=== PATIENT | male | born 1980 | race African-American/Black ===

== ENCOUNTER 2018-05-07 09:26 | Emergency (ER) | payer OTHER ==
[2018-05-07] MEDS ORDERED: predniSONE 20 MG TAB ONE (09:55)
--- NOTE | 2018-05-07 10:08 | RAD REPORT ---
EXAM DESCRIPTION: CT - Head Brain Wo Cont - 05/07/2018 9:48 am CLINICAL HISTORY: Numbness and headache COMPARISON: None. TECHNIQUE: Computed axial tomography of the head was obtained. IV contrast was not requested. All CT scans are performed using dose optimization technique as appropriate and may include automated exposure control or mA/KV adjustment according to patient size. FINDINGS: An intracranial bleed is not seen . The ventricles are normal in caliber. No extra-axial fluid collection is noted. Fluid within the sinuses/ mastoids is not seen. IMPRESSION: No acute intracranial abnormality is seen. If patient's symptoms persist MRI of the bra in would be recommended.
--- NOTE | 2018-05-07 10:37 | ER ---
Nurse's Notes [facility] Name: David Morales Jr Age: 38 yrs Sex: Male : 1980 Arrival Date: 05/07/2018 Time: 09:27 Bed 5 Private MD: Diagnosis: Jonas's palsy Presentation: 05/07 09:33 Presenting complaint: Patient states: 2-3 daysa go, i started having ear pain on my R hj ear and yesterday, i started having headache; and today when i woke up i had jaw pain and the right side of my face is numb and i could hardly close my R eye; my lips rose leaned towards the L side;. Transition of care: patient was not received from another setting of care. Onset of symptoms was May 07, 2018. Risk Assessment: Do you want to hurt yourself or someone else? Patient reports no desire to harm self or others. Initial Sepsis Screen: Does the patient meet any 2 criteria? No. Patient's initial sepsis screen is negative. Does the patient have a suspected source of infection? No. Patient's initial sepsis screen is negative. Care prior to arrival: None. 09:33 Method Of Arrival: Ambulatory 09:33 Acuity: MABEL 4 hj Triage Assessment: 09:36 General: Appears in no apparent distress. uncomfortable, Behavior is calm, cooperative, hj appropriate for age. Pain: Complains of pain in head. Historical: - Allergies: 09:36 No Known Allergies; hj - Home Meds: 09:36 None [Active]; hj - PMHx: 09:36 None; hj - PSHx: 09:36 ankle; hj - Immunization history:: Adult Immunizations up to date. - Social history:: Smoking status: Patient/guardian denies using tobacco, Patient/guardian denies using alcohol. - Ebola Screening: : Patient negative for fever greater than or equal to 101.5 degrees Fahrenheit, and additional compatible Ebola Virus Disease symptoms Patient denies exposure to infectious person Patient denies travel to an Ebola-affected area in the 21 days before illness onset. Screenin:36 Abuse screen: Denies threats or abuse. Denies injuries from another. Nutritional hj screening: No deficits noted. Tuberculosis screening: No symptoms or risk factors identified. Fall Risk None identified. Assessment: 09:37 General: Appears in no apparent distress. uncomfortable, Behavior is calm, cooperative, hj appropriate for age. Pain: Complains of pain in head. Neuro: Level of Consciousness is awake, alert, obeys commands, Oriented to person, place, time, situation, Appropriate for age Reports numbness in R side of face weakness. Cardiovascular: Capillary refill < 3 seconds Patient's skin is warm and dry. Respiratory: Airway is patent Respiratory effort is even, unlabored, Respiratory pattern is regular, symmetrical. GI: No signs and/or symptoms were reported involving the gastrointestinal system. : No signs and/or symptoms were reported regarding the genitourinary system. EENT: No signs and/or symptoms were reported regarding the EENT system. Derm: No signs and/or symptoms reported regarding the dermatologic system. Musculoskeletal: Reports weakness in right eye, right cheek and right jaw numbness in right eye, right cheek and right jaw. 09:46 Reassessment: wheeled to CT;. hj 10:11 Reassessment: Patient appears in no apparent distress at this time. No changes from aj1 previously documented assessment. Patient and/or family updated on plan of care and expected duration. Pain level reassessed. Patient is alert, oriented x 3, equal unlabored respirations, skin warm/dry/pink. Vital Signs: 09:37 BP 150 / 98; Pulse 66; Resp 18; Temp 98.2(O); Pulse Ox 100% on R/A; Weight 74.84 kg; hj Height 5 ft. 11 in. (180.34 cm); Pain 2/10; 09:37 Body Mass Index 23.01 (74.84 kg, 180.34 cm) ED Course: 09:27 Patient arrived in ED. rg4 09:32 Colten Banuelos PA is PHCP. jr8 09:32 Carlos Alberto Cain MD is Attending Physician. jr8 09:33 Saúl Andre RN is Primary Nurse. hj 09:35 Triage completed. hj 09:36 Arm band placed on right wrist. hj 09:36 Patient has correct armband on for positive identification. Bed in low position. Call light in reach. Side rails up X 1. 09:48 CT Head Brain wo Cont In Process Unspecified. EDMS 09:48 CT completed. Patient tolerated procedure well. Patient moved to CT via stretcher. jg6 Patient moved back from CT. 10:04 Report given to TRISTEN Chappell. hj 10:10 Vicki Alejandre, RN is Primary Nurse. aj1 10:36 Sen Arizmendi MD is Referral Physician. jr8 10:44 No provider procedures requiring assistance completed. Patient did not have IV access iw during this emergency room visit. Administered Medications: 09:51 Drug: predniSONE 60 mg Route: PO; aj1 10:45 Follow up: Response: No adverse reaction iw Outcome: 10:37 Discharge ordered by . jr8 10:44 Discharged to home ambulatory, with family. iw 10:44 Condition: good 10:44 Discharge instructions given to patient, family, Instructed on discharge instructions, follow up and referral plans. medication usage, Demonstrated understanding of instructions, follow-up care, medications, Prescriptions given X 1. 10:45 Patient left the ED. iw Signatures: Dispatcher [employer] EDMS Vicki Alejandre, TRISTEN RAMON aj1 Tasneem Pierce RN RN iw Colten Banuelos PA PA jr8 Saúl Andre RN RN Rhianan Mas4 Cyndi Mas jg6
--- NOTE | 2018-05-07 10:38 | EDPHYS ---
Physician Documentation [facility] Name: David Morales Jr Age: 38 yrs Sex: Male : 1980 Arrival Date: 05/07/2018 Time: 09:27 Bed 5 Private MD: ED Physician Carlos Alberto Cain HPI: 05/07 10:19 This 38 yrs old Black Male presents to ER via Ambulatory with complaints of Numbness Of jr8 Face. 10:19 Onset: The symptoms/episode began/occurred acutely, today. The patient has not jr8 experienced similar symptoms in the past. The patient has not recently seen a physician. Patient started with ear pain about two days ago. Had headache yesterday and then work up today with numbness to right face and could not close right eye all the way and felt right side of lips were different. Denies recent illness or trauma. Historical: - Allergies: 09:36 No Known Allergies; hj - Home Meds: 09:36 None [Active]; hj - PMHx: 09:36 None; hj - PSHx: 09:36 ankle; hj - Immunization history:: Adult Immunizations up to date. - Social history:: Smoking status: Patient/guardian denies using tobacco, Patient/guardian denies using alcohol. - Ebola Screening: : Patient negative for fever greater than or equal to 101.5 degrees Fahrenheit, and additional compatible Ebola Virus Disease symptoms Patient denies exposure to infectious person Patient denies travel to an Ebola-affected area in the 21 days before illness onset. ROS: 10:19 Eyes: Negative for injury, pain, redness, and discharge, ENT: Negative for injury, jr8 pain, and discharge, Neck: Negative for injury, pain, and swelling, Cardiovascular: Negative for chest pain, palpitations, and edema, Respiratory: Negative for shortness of breath, cough, wheezing, and pleuritic chest pain, Abdomen/GI: Negative for abdominal pain, nausea, vomiting, diarrhea, and constipation, Back: Negative for injury and pain, MS/Extremity: Negative for injury and deformity, Skin: Negative for injury, rash, and discoloration. 10:19 Neuro: Positive for numbness, weakness, of the face. Exam: 10:19 Head/Face: Normocephalic, atraumatic. Eyes: Pupils equal round and reactive to light, jr8 extra-ocular motions intact. Lids and lashes normal. Conjunctiva and sclera are non-icteric and not injected. Cornea within normal limits. Periorbital areas with no swelling, redness, or edema. ENT: Nares patent. No nasal discharge, no septal abnormalities noted. Tympanic membranes are normal and external auditory canals are clear. Oropharynx with no redness, swelling, or masses, exudates, or evidence of obstruction, uvula midline. Mucous membranes moist. Neck: Trachea midline, no thyromegaly or masses palpated, and no cervical lymphadenopathy. Supple, full range of motion without nuchal rigidity, or vertebral point tenderness. No Meningismus. Cardiovascular: Regular rate and rhythm with a normal S1 and S2. No gallops, murmurs, or rubs. Normal PMI, no JVD. No pulse deficits. Respiratory: Lungs have equal breath sounds bilaterally, clear to auscultation and percussion. No rales, rhonchi or wheezes noted. No increased work of breathing, no retractions or nasal flaring. Abdomen/GI: Soft, non-tender, with normal bowel sounds. No distension or tympany. No guarding or rebound. No evidence of tenderness throughout. Back: No spinal tenderness. No costovertebral tenderness. Full range of motion. Skin: Warm, dry with normal turgor. Normal color with no rashes, no lesions, and no evidence of cellulitis. MS/ Extremity: Pulses equal, no cyanosis. Neurovascular intact. Full, normal range of motion. 10:19 Neuro: Orientation: to person, place, time \T\ situation. Mentation: is normal, Memory: is normal, immediate memory is intact, recent memory is intact, remote memory is intact, Cranial nerves: CN I not tested, CN II- XII are normal as tested, visual chanel are intact. extraocular movements are intact, facial droop noted on right, with forehead involved. decreased ocular muscle tone in the right eye, Cerebellar function: is grossly normal, Motor: moves all fours, strength is 5/5 in all extremities, Sensation: no obvious gross deficits, Gait: is steady, seizure activity, is not displayed by the patient, Abnormal movements: there are no abnormal movements. Vital Signs: 09:37 BP 150 / 98; Pulse 66; Resp 18; Temp 98.2(O); Pulse Ox 100% on R/A; Weight 74.84 kg; hj Height 5 ft. 11 in. (180.34 cm); Pain 06/13; 09:37 Body Mass Index 23.01 (74.84 kg, 180.34 cm) hj MDM: 09:32 Patient medically screened. jr8 10:36 Data reviewed: vital signs, nurses notes, radiologic studies, CT scan. Data jr8 interpreted: Pulse oximetry: on room air is 100 %. Interpretation: normal. Counseling: I had a detailed discussion with the patient and/or guardian regarding: the historical points, exam findings, and any diagnostic results supporting the discharge/admit diagnosis, radiology results, the need for outpatient follow up, a neurologist, to return to the emergency department if symptoms worsen or persist or if there are any questions or concerns that arise at home. 05/07 09:39 Order name: CT Head Brain wo Cont; Complete Time: 10:13 jr8 Administered Medications: 09:51 Drug: predniSONE 60 mg Route: PO; aj1 10:45 Follow up: Response: No adverse reaction iw Disposition: 05/07/18 10:37 Discharged to Home. Impression: Jonas's palsy. - Condition is Stable. - Discharge Instructions: Jonas Palsy, Adult. - Prescriptions for Prednisone 20 mg Oral Tablet - take 3 tablets by ORAL route once daily for 6 days; 18 tablet. - Work release form, Medication Reconciliation Form, Thank You Letter, Antibiotic Education, Prescription Opioid Use form. - Follow up: Sen Arizmendi MD; When: 5 - 6 days; Reason: Recheck today's complaints, Continuance of care, Re-evaluation by your physician. - Problem is new. - Symptoms have improved. Addendum: 05/20/2018 07:26 Co-signature as Attending Physician, Carlos Alberto Cain MD I agree with the assessment and k dr plan of care. Signatures: Dispatcher [employer] EDMS Vicki Alejandre RN RN aj1 Carlos Alberto Cain MD MD kdr Tasneem Pierce RN RN iw Colten Banuelos PA PA jr8 Saúl Andre RN RN hj Corrections: (The following items were deleted from the chart) 05/07 10:45 10:37 05/07/2018 10:37 Discharged to Home. Impression: Jonas's palsy. Condition is iw Stable. Forms are Medication Reconciliation Form, Thank You Letter, Antibiotic Education, Prescription Opioid Use. Follow up: Sen Arizmendi; When: 5 - 6 days; Reason: Recheck today's complaints, Continuance of care, Re-evaluation by your physician. Problem is new. Symptoms have improved. jr8
[2018-05-07 10:50] VITALS: BP 150/98; TEMP 98.2; O2SAT 100
== END 2018-05-07 10:45 | disposition home or self-care (01) ==
LOC: ER 09:26
DX: G51.0 Bell's palsy (principal)
CPT/HCPCS: 70450; 99284; J7512

== ENCOUNTER 2022-07-17 15:30 | Emergency (ER) | payer SELFPAY ==
--- OUTSIDE RECORDS SUMMARY | 2022-07-17 15:36 | XMS REPORT | Continuity of Care Document ---
:1980 Author Organization [facility] t Address [address] [place] [address] [place] [id number] Care Team Providers Name Role Phone BERT STILL Primary Care Physician Unavailable BERT STILL Attending Clinician Unavailable Bert Still MD Attending Clinician Problems Condition Condition Condition Status Onset Resolution Last Treating Co mments Source Name Details Category Date Date Treatment Clinician Date Primary Primary Disease Active 2021-05 Univers hypertensi hypertensi 2-08 it y of on on 00:00: [address] Allergies, Adverse Reactions, Alerts Allergy Allergy Status Severity Reaction(s) Onset Inactive Treating Comm ents Source Name Type Date Date Clinician NO KNOWN Drug Active Univers ALLERGIE Class ity of S [facility] Social History Social Habit Start Date Stop Date Quantity Comments Source History of tobacco Cigarette Smoker University of use [facility] Exposure to 2022-03-31 2022-04-10 Not sure [facility] SARS-CoV-2 (event) 00:00:00 15:21:00 [facility] Cigarette 2022-04-10 2022-04-10 University of pack-years 00:00:00 00:00:00 [facility] Tobacco use and 2022-04-10 2022-04-10 Former smokeless Uni versity of exposure 00:00:00 00:00:00 [facility] [place] Alcohol intake 2022-04-10 2022-04-10 Current drinker Unive rsity of 00:00:00 00:00:00 of alcohol [facility] [place] Alcohol Comment 2022-04-10 2022-04-10 socially Universit y of 00:00:00 00:00:00 [facility] Cigarettes smoked 2022-04-10 2022-04-10 Univers ity of current (pack per 00:00:00 00:00:00 ) - Reported Branch Sex Assigned [birth year] Universit y of 00:00:00 00:00:00 [facility] Smoking Status Start Date Stop Date Source Smokes tobacco daily 2022-04-10 00:00:00 Univers ity [facility] Medications Ordered Filled Start Stop Current Ordering Indication Dosage Frequency Signature Comments Components Source Medication Medication Date Date Medication? Clinician (SIG) Name Name ATENOLOL 25 Yes [id number] TAKE 1 Univers mg tablet 3-06 TABLET BY ity o f 00:00: MOUTH [place] 00 EVERY DAY Medical IN THE Branch MORNING atenoloL 25 2021-05 Yes [id number] 25mg Take 1 Univers mg tablet 2-08 tablet by ity o f 00:00: mouth in [place] 00 the Medical morning. Branch atenoloL 25 2021-05 Yes [id number] 25mg Take 1 Univers mg tablet 2-08 tablet by ity o f 00:00: mouth in [place] 00 the Medical morning. Branch atenoloL 25 2021-05- No [id number] 25mg Take 1 Univers mg tablet 2-08 03-06 tablet by ity of 00:00: 00:00 mouth in [place] 00 :00 the Medical morning. Branch Vital Signs Vital Name Observation Time Observation Value Comments Source Systolic blood 2022-04-10 21:27:00 145 mm[Hg] [facility] pressure [facility] Diastolic blood 2022-04-10 21:27:00 89 mm[Hg] [facility] Heart rate 2022-04-10 21:26:00 75 /min [facility] Body height 2022-04-10 21:26:00 177.8 cm [facility] Body weight 2022-04-10 21:26:00 78.79 kg [facility] BMI 2022-04-10 21:26:00 24.92 kg/m2 [facility] Oxygen saturation 2022-04-10 21:26:00 96 /min [facility] in Arterial blood Medical Br anch by Pulse oximetry Procedures This patient has no known procedures. Encounters Start End Encounter Admission Attending Care Care Encounter Source Date/Time Date/Time Type Type Clinicians Facility Department ID 2022-07-24 2022-07-24 Outpatient Asha STILL [facility] [id number] Univers 13:45:00 13:45:00 BERT shea [facility] 2022-07-06 2022-07-06 [facility] [id number] Univers 00:00:00 00:00:00 [place] [id number] it y of [place] [id number] Feliberto as JAVIER?BLEA [id number] [address] MEDICAL OFFICE BUILDING 2022-04-10 2022-04-10 Outpatient Asha STILL [facility] [id number] Univers 15:15:00 15:53:39 BERT melecio [facility] 2022-04-10 2022-04-10 [facility] [id number] Univers 15:15:00 15:53:39 Visit [facility] [id number] it y of [place] [id number] Feliberto as JAVIER?BLEA [id number] [address] MEDICAL OFFICE BUILDING Results This patient has no known results.
[2022-07-17 16:54] LABS: Absolute Lymphocytes (CBC) 1.6 K/uL (0.7-4.9); Lymphocytes % 28.9 % (15.3-44.8); MCV 81.9 fL (80-100); MPV 6.2 fL (7.6-11.3); RBC Red Blood Cell Count 4.89 M/uL (4.33-5.43)
[2022-07-17 17:07] LABS: Potassium 3.7 mEq/L (3.5-5.1)
[2022-07-17] MEDS ORDERED: NA CHLORIDE 0.9% 250 ML ONE (17:07)
--- NOTE | 2022-07-17 17:20 | RAD REPORT ---
EXAM DESCRIPTION: CT - Head Brain Wo Cont - 07/17/2022 4:54 pm CLINICAL HISTORY: Dizziness;Headache COMPARISON: 05/07/[address] TECHNIQUE: Noncontrast head CT images ad were obtained without IV contrast. Multiplanar reformats we re generated and reviewed. All CT scans are performed using dose optimization technique as appropriate and may include automated exposure control or mA/KV adjustment according to patient size. FINDINGS: No intracranial hemorrhage, mass, or edema. Midline structures are unremarkable. Normal ventricular caliber for age. Blake-white matter differentiation is preserved, without evidence of acute infarct. No abnormal extra- axial fluid collections. Mastoid air cells and visualized portions of the paranasal sinuses are clear. No acute bony findings. IMPRESSION: No evidence of an acute intracranial process.
--- NOTE | 2022-07-17 17:27 | RAD REPORT ---
EXAM DESCRIPTION: CT - Head angio - 07/17/2022 4:54 pm CLINICAL HISTORY: DIZZINESS COMPARISON: Head Brain Wo Cont dated 07/17/2022; Head Brain Wo Cont dated 05/07/2018 TECHNIQUE: Axial CT angiography images of the head was performed with multiplanar and maximum intens ity projection reconstructions. Images performed following intravenous administration of 95mL Isovue 370. All CT scans are performed using dose optimization technique as appropriate and may include automated exposure control or mA/KV adjustment according to patient size. FINDINGS: No evidence of large vessel occlusion. No evidence of aneurysm or dissection flap is detec barrett. No flow-limiting stenosis or vascular malformation identified. Antegrade flow is seen in the vertebral arteries. The vertebral arteries are codominant. The visualized dural venous sinuses are grossly patent. IMPRESSION: No evidence of large vessel occlusion or flow-limiting stenosis.
--- NOTE | 2022-07-17 17:30 | RAD REPORT ---
EXAM DESCRIPTION: CT - Neck Angio - 07/17/2022 4:54 pm CLINICAL HISTORY: FACIAL PAIN COMPARISON: Noncontrast head CT of the same day TECHNIQUE: Axial CT angiography images of the head was performed with multiplanar and maximum intens ity projection reconstructions. Images performed following intravenous administration of 95mL Isovue 370. All CT scans are performed using dose optimization technique as appropriate and may include automated exposure control or mA/KV adjustment according to patient size. CT quantification o f carotid stenosis, if any, is performed according to NASCET criteria. FINDINGS: A left aortic arch is identified with variant do vessel arch configuration of the great ve ssels. No significant flow abnormality is seen of the common carotid bilaterally. No significant stenosis is identified involving the cervical segments of both internal carotid arteri es. Normal flow is seen within both vertebral arteries, although the proximal right vertebral artery and its origin are obscured by artifact resulting from dense venous contrast. IMPRESSION: No significant flow abnormality of the neck vessels is identified.
--- NOTE | 2022-07-17 18:15 | EDPHYS ---
Physician Documentation [facility] Name: David Morales Jr Age: 42 yrs Sex: Male : 1980 Arrival Date: 07/17/2022 Time: 15:33 Bed 6 Private MD: ED Physician Carlos Alberto Cain HPI: 07/17 16:32 This 42 yrs old Black Male presents to ER via Ambulatory with complaints of Facial snw Pain, Neck Pain, <24hrs Old. 16:32 The patient or guardian reports pain, tenderness. 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 - Social history:: Smoking status: Patient reports the use of cigarette tobacco products, smokes one-half pack cigarettes per day, Reported history of juuling and/or vaping. ROS: 16:30 Eyes: Negative for injury, pain, redness, and discharge. snw 16:30 Neck: Negative for injury, pain, and swelling, Cardiovascular: Negative for chest pain, palpitations, and edema, Respiratory: Negative for shortness of breath, cough, wheezing, and pleuritic chest pain, Abdomen/GI: Negative for abdominal pain, nausea, vomiting, diarrhea, and constipation, Back: Negative for injury and pain, : Negative for injury, bleeding, discharge, and swelling. 16:30 Skin: Negative for injury, rash, and discoloration, Psych: Negative for depression, anxiety, suicide ideation, homicidal ideation, and hallucinations. 16:30 Constitutional: Positive for body aches, malaise. 16:30 ENT: Positive for ear pain. 16:30 MS/extremity: Positive for pain, tenderness, of the right side of forehead, right occipital area, right ear and right base of the skull. 16:30 Neuro: Positive for dizziness, headache, of the right side of forehead, right occipital area, right ear and right base of the skull. Exam: 16:29 Constitutional: This is a well developed, well nourished patient who is awake, alert, snw and in no acute distress. Head/Face: Normocephalic, atraumatic. Eyes: Pupils equal round and reactive to light, extra-ocular motions intact. Lids and lashes normal. Conjunctiva and sclera are non-icteric and not injected. Cornea within normal limits. Periorbital areas with no swelling, redness, or edema. 16:29 Chest/axilla: Normal chest wall appearance and motion. Nontender with no deformity. No lesions are appreciated. Cardiovascular: Regular rate and rhythm with a normal S1 and S2. No gallops, murmurs, or rubs. Normal PMI, no JVD. No pulse deficits. Respiratory: Lungs have equal breath sounds bilaterally, clear to auscultation and percussion. No rales, rhonchi or wheezes noted. No increased work of breathing, no retractions or nasal flaring. Abdomen/GI: Soft, non-tender, with normal bowel sounds. No distension or tympany. No guarding or rebound. No evidence of tenderness throughout. Back: No spinal tenderness. No costovertebral tenderness. Full range of motion. 16:29 Skin: Warm, dry with normal turgor. Normal color with no rashes, no lesions, and no evidence of cellulitis. MS/ Extremity: Pulses equal, no cyanosis. Neurovascular intact. Full, normal range of motion. Neuro: Awake and alert, GCS 15, oriented to person, place, time, and situation. Cranial nerves II-XII grossly intact. Motor strength 5/5 in all extremities. Sensory grossly intact. Cerebellar exam normal. Normal gait. Psych: Awake, alert, with orientation to person, place and time. Behavior, mood, and affect are within normal limits. 16:29 ENT: External ear(s): are unremarkable, Ear canal(s): are normal, TM's: are normal, Nose: is normal, Mouth: Oral mucosa: pink and intact, Posterior pharynx: erythema, that is moderate, Dental exam: normal. 16:29 Neck: External neck: tenderness, that is moderate, of the right mid cervical area and right trapezius. Vital Signs: 15:53 BP 139 / 107; Pulse 68; Resp 18; Temp 98.1; Pulse Ox 98% on R/A; Weight 77.11 kg; kr3 Height 5 ft. 10 in. ; Pain 7/10; 15:53 Body Mass Index 24.39 (77.11 kg, 177.8 cm) kr3 15:53 Pain Scale: Adult kr3 [place] Coma Score: 16:33 Eye Response: spontaneous(4). Motor Response: obeys commands(6). Verbal Response: snw oriented(5). Total: 15. MDM: 15:55 Patient medically screened. snw 16:33 Differential diagnosis: Jonas's palsy, TMJ, mass, Hypertensive urgency. Data reviewed: snw vital signs, nurses notes. 07/17 16:27 Order name: CBC with Diff; Complete Time: 17:03 snw 07/17 16:27 Order name: Strep; Complete Time: 17:03 snw 07/17 16:27 Order name: Chem 7; Complete Time: 17:13 snw 07/17 16:27 Order name: CT Head Brain wo Cont; Complete Time: 17:24 snw 07/17 16:27 Order name: CT Head Angio; Complete Time: 17:47 snw 07/17 16:27 Order name: CT Neck Angio; Complete Time: 17:47 snw 07/17 17:04 Order name: Throat Culture EDMS 07/17 18:08 Order name: Recheck Vital Signs snw Administered Medications: 17:01 Drug: NS 0.9% IV 250 ml Route: IV; Rate: 75 ml/hr; Site: right antecubital; ko1 Disposition Summary: 07/17/22 18:15 Discharge Ordered Location: Home snw Condition: Stable snw Diagnosis - Headache snw - Dizziness and giddiness - hx of Jonas's Palsy snw Followup: snw - With: Emergency Department - When: As needed - Reason: Worsening of condition Followup: snw - With: Private Physician - When: 2 - 3 days - Reason: Recheck today's complaints, Continuance of care, Re-evaluation by your physician Forms: - Medication Reconciliation Form snw - Thank You Letter snw - Antibiotic Education snw - Prescription Opioid Use snw Signatures: Dispatcher [employer] EDMS Jenna Whaley FNP-C [employer]-Csnw Portia Villagomez RN RN kr3 Cathleen Beltran RN RN ko1
--- NOTE | 2022-07-17 18:15 | ER ---
Nurse's Notes [facility] Name: David Morales Jr Age: 42 yrs Sex: Male : 1980 Arrival Date: 07/17/2022 Time: 15:33 Bed 6 Private MD: Diagnosis: Headache;Dizziness and giddiness-hx of Jonas's Palsy Presentation: 07/17 15:53 Chief complaint: Patient states: past couple of days I have had a headache on the right kr3 side of my head, pain in the right side of my neck and right shoulder pain. I have had jonas palsy in the past and this feels similar. The past few months inside my nose there is like a sore or something that bleeds and then blocks my passage way. Coronavirus screen: Vaccine status: Patient reports being unvaccinated. Ebola Screen: Patient denies travel to an Ebola-affected area in the 21 days before illness onset. Acute neurological deficit: none identified. Initial Sepsis Screen: Does the patient meet any 2 criteria? No. Patient's initial sepsis screen is negative. Does the patient have a suspected source of infection? No. Patient's initial sepsis screen is negative. Risk Assessment: Do you want to hurt yourself or someone else? Patient reports no desire to harm self or others. Onset of symptoms was July 11, 2022. 15:53 Method Of Arrival: Ambulatory kr3 15:53 Acuity: MABEL 3 kr3 Triage Assessment: 16:01 General: Appears in no apparent distress. uncomfortable, Behavior is calm, cooperative, kr3 appropriate for age. Neuro: Level of Consciousness is awake, alert, obeys commands, Oriented to person, place, time, situation. Cardiovascular: Patient's skin is warm and dry. Respiratory: Airway is patent Respiratory effort is even, unlabored, Respiratory pattern is regular, symmetrical. 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 - Social history:: Smoking status: Patient reports the use of cigarette tobacco products, smokes one-half pack cigarettes per day, Reported history of juuling and/or vaping. Vital Signs: 15:53 BP 139 / 107; Pulse 68; Resp 18; Temp 98.1; Pulse Ox 98% on R/A; Weight 77.11 kg; kr3 Height 5 ft. 10 in. ; Pain 7/10; 15:53 Body Mass Index 24.39 (77.11 kg, 177.8 cm) kr3 15:53 Pain Scale: Adult kr3 [place] Coma Score: 16:33 Eye Response: spontaneous(4). Motor Response: obeys commands(6). Verbal Response: snw oriented(5). Total: 15. ED Course: 15:33 Patient arrived in ED. rg4 15:49 Jenna Whaley FNP-C [facility]. snw 15:49 Carlos Alberto Cain MD is Attending Physician. snw 15:59 Triage completed. kr3 16:01 Arm band placed on right wrist. kr3 16:45 Inserted saline lock: 20 gauge in right antecubital area, using aseptic technique. ko1 Blood collected. 16:50 Cathleen Beltran, RN is Primary Nurse. ko1 16:50 CBC with Diff Sent. ko1 16:50 Chem 7 Sent. ko1 16:50 Strep Sent. ko1 16:55 CT Head Brain wo Cont In Process Unspecified. EDMS 16:56 CT Head Angio In Process Unspecified. EDMS 16:56 CT Neck Angio In Process Unspecified. EDMS Administered Medications: 17:01 Drug: NS 0.9% IV 250 ml Route: IV; Rate: 75 ml/hr; Site: right antecubital; ko1 Outcome: 18:15 Discharge ordered by . snw Signatures: Dispatcher [employer] EDMS Jenna Whaley FNP-C FNP-Rhianna [place] rg4 Portia Villagomez, RN RN kr3 Cathleen Beltran, RN RN ko1
[2022-07-17 20:38] VITALS: TEMP 98.1
[2022-07-17 20:44] VITALS: BP 148/99; O2SAT 98
== END 2022-07-17 18:44 | disposition home or self-care (01) ==
LOC: ER 15:30
DX: R51.9 Headache, unspecified (principal); R42 Dizziness and giddiness; G51.0 Bell's palsy; I10 Essential (primary) hypertension; F17.210 Nicotine dependence, cigarettes, uncomplicated
CPT/HCPCS: 36415; 70450; 70496; 70498; 80048; 82565; 85025; 87070; 87081; 99284; J7050; Q9967